=== PATIENT | male | born 1950 | race Caucasian/White ===

== ENCOUNTER 2016-07-01 16:59 | Inpatient (IN) | payer MEDICARE ==
--- NOTE | ~2016-07-01 | HP ---
History And Physical [facility] [address] [place]. [address] NAME: RAPHAEL SHEFFIELD : 46 STATUS : ADM IN LOCATED WITHIN [facility]#: [id number] AGE: 65 ADM/REG DATE : 07/01/16 MR#: [id number] REPORT SERV DATE: 07/01/16 DICTATED BY: LARRY PRINCE DATE: 07/01/16 REPORT STATUS : Draft TRANSCRIBED BY: MODOumar DATE: 07/01/16 DATE OF ADMISSION: 07/01/2016 CARDIOLOGY ADMISSION HISTORY AND PHYSICAL IDENTIFYING DATA: The patient is a 65-year-old man with no previous cardiac history. CHIEF COMPLAINT: Abrupt onset of substernal chest pain at approximately 3:30 p.m. today. HISTORY OF PRESENT ILLNESS: Mr. Sheffield is a 65-year-old man with no previous cardiovascular history. The patient apparently was in his usual state of health. He is working outside when he experienced the abrupt onset of chest pain. Emergency Medical Services were called and an inferoposterior ST-segment elevation myocardial infarction was diagnosed in the field. The patient was transferred to [facility] by [facility] for primary percutaneous coronary intervention. PAST MEDICAL HISTORY: 1. Hypertension. 2. Prostatic hypertrophy/prostatitis. PAST SURGICAL HISTORY: The patient reports he had excision of a mass, probably a lipoma based on his description. He denies any other significant past surgical history. FAMILY HISTORY: The patient denies family history of early coronary heart disease or sudden cardiac . SOCIAL HISTORY: The patient currently smokes about a quarter a pack a day of cigarettes. He reports that at its peak he smoked less than one pack a day. He has been smoking for roughly 20 to 25 years. He denies alcohol or drug use. The patient is unmarried. ALLERGIES: THE PATIENT REPORTS A CHILDHOOD ALLERGY TO PENICILLIN, WHICH CAUSED AN EXFOLIATIVE REACTION. HE DENIES ANY OTHER KNOWN MEDICATION ALLERGIES. HOME MEDICATIONS: The patient reports that he takes lisinopril 2.5 mg daily. He reports he takes "an antibiotic," possibly doxazosin for a prostate infection. The patient is on no other medications. REVIEW OF SYSTEMS: An abbreviated 12-system review was performed. This is noncontributory except for the pertinent positives and negatives noted in the history of present illness above. PHYSICAL EXAMINATION: VITAL SIGNS: At the time of admission, the patient is afebrile, though he is diaphoretic. He has a heart rate of approximately 75 beats per minute with frequent PVCs noted, respiratory rate is 20, oxygen saturation is 97% on 2 L nasal cannula. Blood pressure is 140/85 mmHg. GENERAL: The patient is a well-nourished, well-developed white man, who appears History And Physical [address] [place]. [address] NAME: RAPHAEL SHEFFIELD : 46 STATUS : ADM IN PAT#: [id number] AGE: 65 ADM/REG DATE : 07/01/16 MR#: [id number] REPORT SERV DATE: 07/01/16 DICTATED BY: LARRY PRINCE DATE: 07/01/16 REPORT STATUS : Draft TRANSCRIBED BY: BARB DATE: 07/01/16 uncomfortable and is frankly diaphoretic. EYES: PERRL, EOMI, clear conjunctiva. HEAD/MNT: NCAT with moist mucous membranes and grossly normal hard and soft palate. NECK: Supple with no obvious thyromegaly or lymphadenopathy CARDIOVASCULAR: There is a regular rhythm with a normal S1 and a physiologically split second heart sound. No significant murmurs, rubs, or gallops are noted. The jugular venous pressure could not be estimated as the patient is on the cath table. PULMONARY: Grossly clear to auscultation bilaterally with no wheezing, rales, rhonchi, or dullness to percussion. ABDOMINAL: Soft, non-tender, non-distended with no hepatosplenomegaly noted. EXTREMITIES: There is no significant clubbing, cyanosis, or edema. MUSCULOSKELETAL: Grossly normal strength and range of motion in all extremities INTEGUMENTARY: Skin appears intact with no bruises, wounds or active lesions noted NEURO/PSYC: The remainder of the physical exam template is unchanged from baseline except reports a brief neurologic exam demonstrates no focal deficits. STUDIES: 12-lead EKG: A 12-lead strip performed by EMS reveals a [address]-segment elevation with reciprocal depression noted in the precordial leads consistent with an acute inferoposterior myocardial infarction. Cardiac catheterization findings: The patient was found to have total occlusion of his mid right coronary artery. He was treated with aspiration thrombectomy and placement of a 4.0 x 24 mm Synergy drug-eluting stent with 0% residual stenosis and ANNA grade 3 flow. The patient has separate ostia of the left anterior descending and left circumflex coronary arteries. He has diffuse nonobstructive disease of the first diagonal branch with no other significant occlusive disease noted. The patient had an inferior hypokinesis with a left ventricular ejection fraction of 40% to 45%. Left ventricular end-diastolic pressure is severely elevated at 30 mmHg. No significant valvular heart disease is noted on ventriculography. ASSESSMENT AND PLAN: 1. Acute inferoposterior myocardial infarction: The patient will continue his home dose of lisinopril. He will be started on carvedilol 3.125 mg twice daily. He will be started on aspirin 81 mg a daily and Effient 10 mg daily. He will be started on atorvastatin 20 mg p.o. q.h.s. The patient will be admitted to the CCU for further monitoring. He will be given Lasix 40 mg IV x1 in the lab rn, with further Lasix depending on his clinical progression. A chest x-ray will be obtained. 2. Hypertension: The patient's blood pressure is reasonably well controlled. At this time, we will add carvedilol as noted above. 3. Tobacco abuse: The patient will be strongly encouraged to discontinue cigarette smoking. [facility]/BARB Larry Murphy History And Physical [address] [address] NAME: RAPHAEL SHEFFIELD : 46 STATUS : ADM IN LOCATED WITHIN [facility]#: [id number] AGE: 65 ADM/REG DATE : 07/01/16 MR#: [id number] REPORT SERV DATE: 07/01/16 DICTATED BY: LARRY PRINCE DATE: 07/01/16 REPORT STATUS : Draft TRANSCRIBED BY: MODL DATE: 07/01/16 MD Niki / [id number] CC: Larry Prince MD
--- NOTE | ~2016-07-01 | CN ---
Consultation Report [facility] [address] [place]. [address] NAME: RAPHAEL YI : 46 STATUS : ADM IN PAT#: [id number] AGE: 65 ADM/REG DATE : 07/01/16 MR#: [id number] REPORT SERV DATE: 07/03/16 DICTATED BY: BETINA STANFORD DATE: 07/02/16 REPORT STATUS : Draft TRANSCRIBED BY: MODOumar DATE: 07/02/16 UROLOGY CONSULT DATE OF CONSULTATION: 07/02/2016 This consult is from Dr. Prince regarding gross hematuria. CHIEF COMPLAINT: "There is blood in my urine." HISTORY: This is a 65-year-old gentleman, he utilizes the [facility] for his medical needs. He presented with an acute VT to [facility]. He had an emergent stent placed. He was unable to void in the laboratory animal care veterinarian and they were unable to place a Valenzuela in the laboratory animal care veterinarian. He had an Effient and aspirin given as well as anticoagulants during the procedure. The Valenzuela was finally successful in draining 1400 mL of urine in the first two hours after arrival at the CCU. Lasix was given. The urine was grossly bloody with clots and continued this way until the catheter clotted off this evening. I was consulted. I ordered the catheter removed while on my way to the hospital. The patient voided out a large amount of stringy clots and "pure blood" after the catheter was removed. The patient gives a long history of enlarged prostate gland and recurrent prostatitis. He states he was given something to help his urine flow in the past that caused his heart to race and other cardiac symptoms. He believes it was the generic form of Flomax. He states he has had multiple antibiotics for his prostate gland. He states when he has an infection of his prostate gland is when he has the most trouble passing his urine. He states he was just at the [facility] last week and had his regular laboratory studies and physical exam done. He stated his urine was clear then and everything checked out except that his prostate blood test was over 11. He does not remember what his prostate blood test was before that. PAST MEDICAL HISTORY: Hypertension, history of prostatitis, and BPH. Now coronary artery disease and history of an VT. PAST SURGICAL HISTORY: Excision of a mass, possibly a lipoma. MEDICATIONS ON ADMISSION: Lisinopril 2.5 mg a day. He also told admitting that he takes an antibiotic for prostate infection, but he did not report that to me. ALLERGIES: PENICILLIN. SOCIAL HISTORY: He is single. He denies alcohol or drug use. He currently smokes a quarter pack a day. He has been smoking for about 25 years. REVIEW OF SYSTEMS: GENERAL: He denies fever or chills. NEUROLOGIC: Denies symptoms. LUNGS: Denies symptoms. HEART: As above. Consultation Report [address] [place]. [address] NAME: RAPHAEL YI : 46 STATUS : ADM IN [facility]#: [id number] AGE: 65 ADM/REG DATE : 07/01/16 MR#: [id number] REPORT SERV DATE: 07/03/16 DICTATED BY: BETINA STANFORD DATE: 07/02/16 REPORT STATUS : Draft TRANSCRIBED BY: BARB DATE: 07/02/16 GI: Denies symptoms. : As above. MUSCULOSKELETAL: Denies symptoms. PHYSICAL EXAMINATION: VITAL SIGNS: Blood pressure is 160/66, heart rate of 62, respiratory rate of 19, he is saturating 95% on room air. He has had good urine output. GENERAL: He is in no acute distress. NEUROLOGIC: Alert and oriented x3. PSYCHIATRIC: Appropriate. HEENT: Facial features symmetric. Moderately hard of hearing. Eyes, sclerae anicteric. NECK: Supple. LUNGS: Equal inspiratory effort bilaterally. HEART: Regular rate and rhythm. ABDOMEN: Soft, nontender, and nondistended. His bladder is not palpable. GENITOURINARY EXAM: Reveals a normal phallus. Bilateral descended testes without masses. EXTREMITIES: Show mild bilateral lower extremity edema. LABORATORY STUDIES: Creatinine of 0.76, white count of 14.5, hemoglobin of 15.9, hematocrit of 46.2, platelets of 200. Electrolytes are within normal limits. PROCEDURE: After prep and drape, 10 mL of KY jelly was gently injected per urethra and immediately advanced a 20-Uzbek coude catheter to the hub without difficulty, cloudy urine drained, the balloon was inflated with 15 mL of sterile water. Only 40 mL of urine was in the bladder. Once I seated the balloon at the bladder neck, the urine became pink lemonade colored. I did irrigate the bladder and the patient was uncomfortable during bladder irrigation. However, the bladder irrigated very easily with no clots. I secured the catheter to the cath secure device and placed it to bag drainage. IMPRESSION: 1. Urethral prostate trauma during Valenzuela placement resulting in gross hematuria in this patient on anti-platelet medication. 2. BPH with obstruction. 3. UTI/prostatitis. 4. Reportedly elevated PSA. PLAN: 1. We will place him on finasteride 5 mg p.o. daily prescription on the chart and orders written. 2. His Valenzuela catheter needs to stay at least 3 to 5 days before removal to allow the trauma to heal. His primary care doctor may remove it. The issue is whether or not his insurance will allow him to see me on an outpatient basis without a referral so soon. If they will then, he can follow up in my office in 5 days sometime next week for fill and pull catheter removal. 3. Bactrim DS b.i.d. for 30 days to treat UTI and possible prostatitis, perhaps Consultation Report [address] [place]. [address] NAME: RAPHAEL YI : 46 STATUS : ADM IN [facility]#: [id number] AGE: 65 ADM/REG DATE : 07/01/16 MR#: [id number] REPORT SERV DATE: 07/03/16 DICTATED BY: BETINA STANFORD DATE: 07/02/16 REPORT STATUS : Draft TRANSCRIBED BY: BARB DATE: 07/02/16 responsible for his elevated PSA blood test. 4. Pyridium ordered for any catheter discomfort while he is in the hospital. 5. I have written orders to teach him Valenzuela catheter leg bag and overnight bag care. 6. I have encouraged him to drink oral fluids tonight to help his urine clear. 7. He may follow up in 5 weeks in my office for a PSA blood test and a bladder scan for postvoid residual urine. We will need to obtain [facility] in the mean time. [facility]/BARB Betina Stanford M.D. / [id number] CC: Alireza Prince MD
[2016-07-01 17:20] LABS: HEMATOCRIT 44.3 % (40.0-51.0); HEMOGLOBIN 15.2 g/dL (13.6-17.8); MEAN CORPUS HGB CONC 34.3 g/dL (32.0-36.0); MEAN CORPUSCULAR HEMOGLOB 33.1 pg (26.0-34.0); MEAN CORPUSCULAR VOLUME 96.5 fL (80-100); PLATELET COUNT 201 10/3/uL (150-400); RBC DISTRIBUTION WIDTH 13.4 % (12.0-16.0); RED CELL COUNT 4.59 10/6/uL (4.7-6.1); WHITE BLOOD CELLS 17.6 10/3/uL (4.5-10.5)
[2016-07-01 17:20] LABS: CREATININE 0.6 MG/DL (0.70-1.30)
[2016-07-01 17:23] LABS: MANUAL DIFF YES %
[2016-07-01 17:32] LABS: INTERNATIONAL NORMAL RATI 1.1 UNITS (-)
[2016-07-01 17:35] LABS: PARTIAL THROMBO TIME 113.8 SEC (22.5-37.2)
[2016-07-01 17:37] LABS: BUN (BLOOD UREA NITROGEN) 15 MG/DL (6-23); CHLORIDE, SERUM 109 MMOL/L (96-112); CO2 (CARBON DIOXIDE) 24 MMOL/L (24-34); CREATININE 0.64 MG/DL (0.70-1.30); GFR AFRICAN AMERICAN 117 ML/MIN (>=60); GFR NON AFRICAN AMERICAN 101 ML/MIN (>=60); GLUCOSE, SERUM 165 MG/DL (60-99); POTASSIUM, SERUM 4.2 MMOL/L (3.5-5.3); SODIUM, SERUM 143 MMOL/L (135-148)
[2016-07-01 17:38] LABS: CHEST PAIN PROFILE TAT 0 Hrs 22 Mins; TROPONIN I 0.33 NG/ML (<0.05)
[2016-07-01 17:49] LABS: BAND NEUTROPHILS 1 %; BASOPHILS 1 %; BASOPHILS ABSOLUTE (CALC) 0.18 10/3/uL (0.0-0.16); EOSINOPHILS 1 %; EOSINOPHILS ABSOLUTE (CALC) 0.18 10/3/uL (0.0-0.53); LYMPHOCYTES 43 %; LYMPHOCYTES ABSOLUTE (CALC) 7.57 10/3/uL (0.67-4.30); MONOCYTES 2 %; MONOCYTES ABSOLUTE (CALC) 0.35 10/3/uL (0.21-1.20); NEUTROPHILS ABSOLUTE (CALC) 9.33 10/3/uL (2.02-8.40); PLATELET ESTIMATE ADQ (ADEQUATE); RBC MORPHOLOGY NORM (NORMAL); SEGMENTED NEUTROPHIL (0) 52 %; SMUDGE CELLS MOD; TOTAL NUCLEATED CELLS 100
[2016-07-02 01:11] LABS: BASOPHILS 0.1 %; BASOPHILS ABSOLUTE 0.02 10/3/uL (0.0-0.16); EOSINOPHILS 0.1 %; EOSINOPHILS ABSOLUTE 0.01 10/3/uL (0.0-0.53); HEMATOCRIT 46.2 % (40.0-51.0); HEMOGLOBIN 15.9 g/dL (13.6-17.8); IMMATURE GRANULOCYTES 0.3 %; IMMATURE GRANULOCYTES ABSOLUTE 0.04 10/3/uL (0.0-0.11); LYMPHOCYTES 32.2 %; LYMPHOCYTES ABSOLUTE 4.67 10/3/uL (0.67-4.30); MEAN CORPUS HGB CONC 34.4 g/dL (32.0-36.0); MEAN CORPUSCULAR HEMOGLOB 33.1 pg (26.0-34.0); MEAN CORPUSCULAR VOLUME 96.3 fL (80-100); MEAN PLATELET VOLUME 10.8 fL (9.2-13.0); MONOCYTES 5.6 %; MONOCYTES ABSOLUTE 0.81 10/3/uL (0.21-1.20); NEUTROPHILS 61.7 %; NEUTROPHILS ABSOLUTE 8.94 10/3/uL (2.02-8.40); PLATELET COUNT 200 10/3/uL (150-400); RBC DISTRIBUTION WIDTH 13.1 % (12.0-16.0); WHITE BLOOD CELLS 14.5 10/3/uL (4.5-10.5)
[2016-07-02 01:15] LABS: MANUAL DIFF NO %
[2016-07-02 02:43] LABS: BUN (BLOOD UREA NITROGEN) 13 MG/DL (6-23); CALCIUM, SERUM 8.2 MG/DL (8.5-10.4); CHLORIDE, SERUM 108 MMOL/L (96-112); CHOL/HDL RATIO(NOT ORDER) 2.8 (0-5); CHOLESTEROL 177 MG/DL (< 200); CK-MB 163.5 NG/ML; CO2 (CARBON DIOXIDE) 25 MMOL/L (24-34); CPK 1635 U/L (0-200); CREATININE 0.76 MG/DL (0.70-1.30); GFR AFRICAN AMERICAN 109 ML/MIN (>=60); GFR NON AFRICAN AMERICAN 94 ML/MIN (>=60); HDL CHOLESTEROL 63 MG/DL (> 39); LDL CHOLESTEROL 100 MG/DL (< 130); NON-HDL CHOLESTEROL 114 MG/DL (< 160); POTASSIUM, SERUM 4.1 MMOL/L (3.5-5.3); SODIUM, SERUM 144 MMOL/L (135-148); TRIGLYCERIDE 73 MG/DL (< 150)
[2016-07-02 02:47] LABS: GLUCOSE, SERUM 129 MG/DL (60-99)
[2016-07-02 09:56] LABS: CK-MB 114.7 NG/ML
[2016-07-02 09:57] LABS: CKMB INDEX (NOT ORD) 7.4; TROPONIN I 54.3 NG/ML (<0.05)
[2016-07-02 17:06] LABS: WBC (NOT ORDERED) (RFLEX) 0 (0-5)
[2016-07-02 18:11] LABS: ASCORBIC ACID (UR NOT ORDER) NEG (NEG); BILIRUBIN, URINE NEGATIVE (NEG); KETONE, URINE 20 MG/DL (NEG); LEUKOCYTE ESTERASE(NOT OR NEG (NEG)
[2016-07-02 18:21] LABS: CK-MB 70.5 NG/ML; CKMB INDEX (NOT ORD) 5.4
[2016-07-03 06:13] LABS: HEMATOCRIT 44.9 % (40.0-51.0); HEMOGLOBIN 16.1 g/dL (13.6-17.8); MEAN CORPUS HGB CONC 35.9 g/dL (32.0-36.0); MEAN CORPUSCULAR HEMOGLOB 34.4 pg (26.0-34.0); MEAN CORPUSCULAR VOLUME 95.9 fL (80-100); MEAN PLATELET VOLUME 10.8 fL (9.2-13.0); PLATELET COUNT 182 10/3/uL (150-400); RED CELL COUNT 4.68 10/6/uL (4.7-6.1); WHITE BLOOD CELLS 14.3 10/3/uL (4.5-10.5)
[2016-07-03 06:20] LABS: MANUAL DIFF YES %
[2016-07-03 06:26] LABS: BUN (BLOOD UREA NITROGEN) 12 MG/DL (6-23); CALCIUM, SERUM 7.9 MG/DL (8.5-10.4); CHLORIDE, SERUM 105 MMOL/L (96-112); CO2 (CARBON DIOXIDE) 28 MMOL/L (24-34); CREATININE 0.82 MG/DL (0.70-1.30); GFR AFRICAN AMERICAN 106 ML/MIN (>=60); GFR NON AFRICAN AMERICAN 92 ML/MIN (>=60); SODIUM, SERUM 139 MMOL/L (135-148)
[2016-07-03 06:27] LABS: GLUCOSE, SERUM 100 MG/DL (60-99)
[2016-07-03 06:42] LABS: BAND NEUTROPHILS 2 %; BASOPHILS 1 %; BASOPHILS ABSOLUTE (CALC) 0.14 10/3/uL (0.0-0.16); EOSINOPHILS 1 %; EOSINOPHILS ABSOLUTE (CALC) 0.14 10/3/uL (0.0-0.53); LYMPHOCYTES 39 %; LYMPHOCYTES ABSOLUTE (CALC) 5.58 10/3/uL (0.67-4.30); MONOCYTES 5 %; MONOCYTES ABSOLUTE (CALC) 0.72 10/3/uL (0.21-1.20); NEUTROPHILS ABSOLUTE (CALC) 7.72 10/3/uL (2.02-8.40); PLATELET ESTIMATE ADQ (ADEQUATE); RBC MORPHOLOGY NORM (NORMAL); SEGMENTED NEUTROPHIL (0) 52 %; TOTAL NUCLEATED CELLS 100
[2016-07-03] MEDS ORDERED: ASAB PO (17:45)
[2016-07-03] MEDS ORDERED: PROSCAR5 PO (17:45)
[2016-07-03] MEDS ORDERED: LIPITOR40 PO (17:45)
[2016-07-03] MEDS ORDERED: COREG3 PO (17:45)
[2016-07-03] MEDS ORDERED: EFFIENT10 PO (17:46)
[2016-07-03] MEDS ORDERED: PRIN2.5 PO (17:46)
[2016-07-03] MEDS ORDERED: AZO-STANDARD95 MG PO (17:47)
[2016-07-03] MEDS ORDERED: NITROSTAT0.4 MG (17:48)
[2016-07-03] MEDS ORDERED: BACTRIM DS1 TAB PO (17:48)
== END 2016-07-03 18:30 | disposition home or self-care (01) | DRG 246 ==
LOC: SSU2 16:59 → CCU 18:26 → 5NO 07-02 22:20
PROVIDERS: Internal Medicine Cardiovascular Disease; Nurse Practitioner Family
PROC: 4A023N7 Measurement of Cardiac Sampling and Pressure, Left Heart, Percutaneous Approach (ICD-10-PCS; principal; 2016-07-01)
PROC: 027034Z Dilation of Coronary Artery, One Artery with Drug-eluting Intraluminal Device, Percutaneous Approach (ICD-10-PCS; 2016-07-01)
PROC: B2111ZZ Fluoroscopy of Multiple Coronary Arteries using Low Osmolar Contrast (ICD-10-PCS; 2016-07-01)
PROC: B2151ZZ Fluoroscopy of Left Heart using Low Osmolar Contrast (ICD-10-PCS; 2016-07-01)
DX: I21.11 ST elevation (STEMI) myocardial infarction involving right coronary artery (principal); I50.31 Acute diastolic (congestive) heart failure; I25.10 Atherosclerotic heart disease of native coronary artery without angina pectoris; N40.0 Benign prostatic hyperplasia without lower urinary tract symptoms; R31.9 Hematuria, unspecified; F17.210 Nicotine dependence, cigarettes, uncomplicated; I11.0 Hypertensive heart disease with heart failure
CPT/HCPCS: 71010; 80048; 80061; 81001; 82550; 82553; 82565; 83735; 84132; 84295; 84484; 85025; 85347; 85610; 85730; 87641; 93005; 93458; 99152; 99153; A9270-GY; C1725; C1757; C1769; C1874; C1887; C1894; C9606; J2250; J2405; J3010; Q9967